=== PATIENT | female | born 1975 | race Caucasian/White ===

== ENCOUNTER 2023-07-11 11:56 | Emergency (ER) | payer SELFPAY ==
[~2023-07-11] VITALS: Ht 167.6 cm; Wt 95.3 kg
[2023-07-11 12:16] VITALS: O2SAT 99
[2023-07-11] MEDS ORDERED: NITRO-BID1 GM TOP (12:24)
[2023-07-11] MEDS ORDERED: NITROGLYCERIN 2% OINT 1 GM PKT ONE (13:04)
== END 2023-07-11 13:09 | disposition home or self-care (01) ==
LOC: ER 12:05
DX: B07.9 Viral wart, unspecified (principal); K64.9 Unspecified hemorrhoids; F17.210 Nicotine dependence, cigarettes, uncomplicated
CPT/HCPCS: 99282

== ENCOUNTER 2024-12-31 15:57 | Emergency (ER) | payer OTHER ==
[~2024-12-31] VITALS: Ht 167.6 cm; Wt 83.0 kg
[~2024-12-31 15:57] MED LIST: NITRO-BID1 GM TOP; PODOFILOX3.5 ML TOP
[2024-12-31 16:04] VITALS: PULSE 86; RESP 18; TEMP 98.3; O2SAT 100
== END 2024-12-31 16:25 | disposition left against medical advice (07) ==
LOC: ER 16:22
DX: E03.9 Hypothyroidism, unspecified (principal)